=== PATIENT | female | born 1970 | race Two or more races ===

== ENCOUNTER 2025-10-12 05:55 | Emergency (ER) | payer OTHER ==
[~2025-10-12] VITALS: Ht 162.6 cm; Wt 65.8 kg
[2025-10-12] MEDS ORDERED: CEFTRIAXONE SODIUM 1,000 MG VIAL ONE (07:49)
[2025-10-12] MEDS ORDERED: BACTRIM DS TAB1 EACH PO (07:55)
[2025-10-12] MEDS ORDERED: ACETAMINOPHEN500 M1 PO (07:55)
[2025-10-12 07:59] LABS: URINE APPEARANCE Turbid; URINE BILIRRUBIN Small (NEGATIVE); URINE BLOOD Moderate; URINE COLOR Red; URINE GLUCOSE Negative (NEGATIVE); URINE KETONE 15 (NEGATIVE); URINE LEUKOCYTE Large; URINE NITRATE Positive; URINE UROBILINOGEN 0.2 E.U./dl
[2025-10-12] MEDS ORDERED: CEFTRIAXONE SODIUM 1,000 MG VIAL IM ONE (08:00)
[2025-10-12 08:03] LABS: URINE BACTERIA 1133.7 uL (0.0-1933); URINE EPITHELIAL CELLS 16.7 uL (0.0-38.8)
[2025-10-12 08:16] LABS: URINE CAST 0.77 uL (0.0-1.40); URINE PROTEIN 100 (NEGATIVE); URINE RBC > 10558.9 uL (0.0-20.8); URINE WBC > 5548.3 uL (0.0-23.2)
[2025-10-12 08:18] LABS: BASO % 0.3 % (0.1-1.2); EOS # 0.09 (0.04-0.54); EOS % 0.9 % (0.7-7.0); LYMPH # 1.12 (1.18-3.74); LYMPH % 11.3 % (19.3-53.1); MEAN PLATELET VOLUME 9.60 fl (9.4-12.4); MONO # 0.47 (0.24-0.82); MONO % 4.8 % (4.7-12.5); NEUT # 8.15 (1.56-6.13); NEUT % 82.5 % (34.0-71.1); RED CELL DISTRIBUTION WIDTH 13.0 % (11.6-14.4)
[2025-10-12 09:08] LABS: ALT/SGPT 36.0 U/L (12-78); AST/SGOT 13.0 U/L (15-37); BILIRUBIN TOTAL 0.73 mg/dL (0.3-1.2); BUN CREA RATIO 16.0 (7.0-25.0); CREATININE SERUM 0.73 mg/dL (0.55-1.02); GFR 83.08; GLOBULINA 3.4 G/DL (2.4-3.5); GLUCOSE FASTING 99.0 mg/dL (65-100); OSMOLALITY SERUM 285.0 MOSM/KG (275-295)
[2025-10-12] MEDS ORDERED: MACROBID 100 M100 MG PO (11:25)
[2025-10-12] MEDS ORDERED: FLUCONAZOLE150 MG PO (11:25)
[2025-10-12] MEDS ORDERED: TERCONAZOLE20 GM VAG (11:25)
== END 2025-10-12 12:48 | disposition home or self-care (01) ==
LOC: ER 05:55
PROVIDERS: Preventive Medicine Public Health & General Preventive Medicine
DX: R30.0 Dysuria (principal); R31.9 Hematuria, unspecified; N39.0 Urinary tract infection, site not specified; R35.0 Frequency of micturition